=== PATIENT | male | born 1990 | race African-American/Black ===

== ENCOUNTER 2016-06-12 07:09 | Emergency (ER) | payer SELFPAY ==
[2016-06-12] MEDS ORDERED: HYDROcodone/Acetaminophen 10/325 mg Tablet ONE (07:27)
[2016-06-12] MEDS ORDERED: Ibuprofen 800 MG TAB ONE (07:27)
[2016-06-12] MEDS ORDERED: Ciprofloxacin 500 MG TAB ONE (07:27)
== END 2016-06-12 07:37 | disposition home or self-care (01) ==
LOC: NAV ERS 07:09
DX: K02.9 Dental caries, unspecified (principal)
CPT/HCPCS: 99282